=== PATIENT | female | born 2000 ===

== ENCOUNTER 2020-01-04 02:15 | Inpatient (IN) | payer BC, OTHER ==
[2020-01-04] MEDS ORDERED: LABETALOL 100 MG TAB PO STA (03:00)
[2020-01-04] MEDS ORDERED: METHYLERGONOVINE 0.2 MG/ML 1 ML AMP IM PRN (03:00)
[2020-01-04] MEDS ORDERED: OXYTOCIN 30 UNITS/500 ML NS 30 UNIT in SALINE 1 500ML.BAG IV SCH (03:00)
[2020-01-04] MEDS ORDERED: LIDOCAINE 0.5% (PF) 5 MG/ML (50 ML SDV) SQ PRN (03:00)
[2020-01-04] MEDS ORDERED: CARBOPROST TROMETHAMINE 250 MCG/ML 1 ML AMP IM PRN (03:00)
[2020-01-04] MEDS ORDERED: OXYTOCIN 10 UNIT/ML 1 ML VIAL IM PRN (03:00)
[2020-01-04] MEDS ORDERED: TERBUTALINE 1 MG/ML VIAL SQ PRN (03:00)
[2020-01-04 03:20] LABS: Amorphous Sediment,Urine Rare /hpf; Appearance,Urine Cloudy (Clear); Bacteria,Urine Many /hpf; Bilirubin,Urine Negative (Negative); Blood,Urine Negative (Negative); Color,Urine Yellow; Glucose,Urine (UA) Negative (Negative); Ketones,Urine Negative (Negative); Leukocyte Esterase,Urine Negative (Negative); Mucus,Urine Rare /hpf; Nitrite,Urine Negative (Negative); PH, Urine 6.5 (5.0-8.0); Protein,Urine 1+ (Negative); Specific Gravity,Urine 1.014 (1.001-1.035); Squamous Epithelial Cell,Urine 23 /hpf (0-4); Urobilinogen,Urine <2.0 mg/dL (<2.0); WBC,Urine 3 /hpf (0-5)
[2020-01-04] MEDS: LACTATED RINGERS 1,000 ML IV SCH ×2 (03:28→10:37)
[2020-01-04 03:31] LABS: Creatinine,Urine Random 75.6 mg/dL; Protein/Creatinine Ratio,Urine 0.636
[2020-01-04 04:00] LABS: Basophils % (A) 0 %; Eosinophils # (A) 0.2 k/uL (0-0.7); Eosinophils % (A) 1 %; HCT 39.1 % (34.0-46.0); HGB 12.7 gm/dL (11.4-16.0); Lymphocytes % (A) 20 %; MCH 28.5 pg (25.0-35.0); MCHC 32.6 g/dL (31.0-37.0); MCV 87.4 fL (80.0-100.0); Mean Platelet Volume 8.8; Monocytes # (A) 0.6 k/uL (0-1.0); Monocytes % (A) 4 %; Neutrophils # (A) 10.8 k/uL (1.3-7.7); Neutrophils % (A) 73 %; Platelet Count 317 k/uL (150-450); RBC 4.47 m/uL (3.80-5.40); RDW 13.7 % (11.5-15.5); WBC 14.8 k/uL (4.0-11.0)
[2020-01-04 04:01] LABS: ALT 9 U/L (4-34); AST 26 U/L (14-36); African American GFR (CKD) >90 (>60 ml/min/1.73 sqM); Blood Urea Nitrogen 11 mg/dL (7-17); LDH 535 U/L (313-618); Non-African American GFR(CKD) >90 (>60 ml/min/1.73 sqM); Uric Acid 5.1 mg/dL (3.7-7.4)
[2020-01-04] MEDS ORDERED: AMPICILLIN 2,000 MG in SODIUM CHLORIDE 0.9% 100 ML IVPB STA (04:23)
[2020-01-04] MEDS ORDERED: AMPICILLIN 1,000 MG in SODIUM CHLORIDE 0.9% 50 ML IVPB SCH (08:23)
--- NOTE | 2020-01-04 09:20 | P.HPOB ---
History of Present Illness H&P Date: 01/04/20 Chief Complaint: IUP at 38 and 3/sevenths weeks, preeclampsia with severe fe atures This is a 19-year-old 4 para 0030 at 38-3/7 weeks that presents to labor and delivery with complaints of increased swelling headache and contractions. Patient was noted to be 2-3 cm on dilation. Blood pressures were noted to be elevated 170s over 100s. Patient noted headache which resolved after IV fluids. Patient noted good movement. She denied visual changes or right upper quadrant pain. Patient has been receiving routine care with myself since the first trimester. She did have a labs of about 3 weeks from 34-37 weeks that subsequently returned for care. On bloodwork patient has a blood type of O+, rubella non-immune, hepatitis B surface antigen negative, RPR nonreactive, HIV negative, group beta strep negative. Review of Systems Constitutional: Denies chills, Denies fever Ears, nose, mouth and throat: Reports headache Cardiovascular: Reports leg edema Respiratory: Denies cough, Denies dyspnea Gastrointestinal: Reports heartburn, Denies constipation, Denies diarrhea, Denies nausea, Denies vomiting Genitourinary: Reports Past Medical History Past Medical History: Asthma History of Any Multi-Drug Resistant Organisms: None Reported Additional Past Surgical History / Comment(s): Neck surgery for an infection when young Past Anesthesia/Blood Transfusion Reactions: No Reported Reaction Past Psychological History: Anxiety Smoking Status: Former smoker Past Alcohol Use History: None Reported Past Drug Use History: None Reported - Past Family History Father Additional Family Medical History / Comment(s): Unknown "heart issue" Medications and Allergies Home Medications Medication Instructions Recorded Confirmed Type No Known Home Medications 01/04/20 01/04/20 History Allergies Allergy/AdvReac Type Severity Reaction Status Date / Time No Known Allergies Allergy Verified 01/04/20 02:28 Exam Osteopathic Statement: *. No significant issues noted on an osteopathic structural exam other than those noted in the History and Physical/Consult. 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 Breathing is noted to be nonlabored, heart has regular rate and rhythm, abdomen is gravid and appropriate for gestational age, on cervical exam she is 3/90/-2 amniotomy is performed and clear fluid is obtained. heart tones returned be category 1 and she is jose irregularly. Results Result Diagrams: 01/04/20 03:20 01/04/20 03:20 Abnormal Lab Results - Last 24 Hours (Table) 01/04/20 01/04/20 01/04/20 Range/Units 02:30 02:30 03:20 WBC 14.8 H (4.0-11.0) k/uL Neutrophils # 10.8 H (1.3-7.7) k/uL Urine Appearance Cloudy H (Clear) Urine Protein 1+ H (Negative) Ur Squamous Epith Cells 23 H (0-4) /hpf Amorphous Sediment Rare H (None) /hpf Urine Bacteria Many H (None) /hpf Urine Mucus Rare H (None) /hpf U Random Total Protein 48 H (<12) mg/dL Assessment and Plan (1) Term Current Visit: Yes Status: Acute Code(s): Z34.90 - ENCNTR FOR SUPRVSN OF NORMAL , UNSP, UNSP TRIMESTER SNOMED Code(s): 35059687 (2) Preeclampsia Current Visit: Yes Status: Acute Code(s): O14.90 - UNSPECIFIED PRE-ECLAMPSIA, UNSPECIFIED TRIMESTER SNOMED Code(s): 671994021 (3) Rubella non-immune status, antepartum Current Visit: Yes Status: Acute Code(s): O99.89 - OTH DISEASES AND CONDITIONS COMPL PREG/CHLDBRTH; Z28.3 - UNDERIMMUNIZATION STATUS SNOMED Code(s): 363553809 Plan: Patient was admitted for induction of labor secondary to preeclampsia with severe features given blood pressures of 170s over 100s. Patient looks well this a.m. Continue Pitocin induction of labor per hospital protocol. Options for analgesia are discussed with patient including Stadol and epidural she will decide if she wants either. Anticipate spontaneous vaginal delivery later today.
[2020-01-04] MEDS ORDERED: BUTORPHANOL 1 MG/ML 1 ML VIAL IV PRN (10:23)
[2020-01-04] MEDS ORDERED: ROPIVACAINE 100 MG, fentaNYL (PF) 200 MCG in SODIUM CHLORIDE 0.9% 76 ML EPIDURAL ONE (12:17)
[2020-01-04 14:34] VITALS: RESP 16
[2020-01-04] MEDS ORDERED: diphenhydrAMINE 50 MG CAP PO PRN (14:40)
[2020-01-04] MEDS ORDERED: diphenhydrAMINE 25 MG CAP PO PRN (14:40)
[2020-01-04] MEDS ORDERED: IBUPROFEN 600 MG TAB PO PRN (14:40)
[2020-01-04] MEDS ORDERED: WITCH HAZEL 1 EACH MED..PAD TOPICAL PRN (14:40)
[2020-01-04] MEDS ORDERED: SIMETHICONE 80 MG CHEWABLE PO PRN (14:40)
[2020-01-04] MEDS ORDERED: HYDROCORTISONE 2.5% RECTAL CREAM 30 GM TUBE RECTAL PRN (14:40)
[2020-01-04] MEDS ORDERED: ACETAMINOPHEN TAB 325 MG TAB PO PRN (14:40)
[2020-01-04] MEDS ORDERED: ZOLPIDEM 5 MG TAB PO PRN (14:40)
[2020-01-04] MEDS ORDERED: LANOLIN CREAM 5 GM TUBE TOPICAL PRN (14:40)
[2020-01-04] MEDS ORDERED: MEASLES-MUMPS-RUBELLA VACC/PF 12,500 UNIT/0.5 ML VIAL SQ ONE (14:40)
[2020-01-04] MEDS ORDERED: diphenhydrAMINE 50 MG/ML 1 ML VIAL IVP PRN ×2 (14:40)
[2020-01-04] MEDS ORDERED: BENZOCAINE/MENTHOL SPRAY 1 GM/SPRAY AEROSOL TOPICAL PRN (14:40)
[2020-01-04] MEDS ORDERED: OXYTOCIN 20 UNITS/1000 ML NS 1,000 ML IV SCH (14:45)
--- NOTE | 2020-01-04 15:06 | P.PROBDLV ---
Vaginal Delivery Note - . Vaginal Delivery Note: This is a pleasant 19-year-old 4 para 0030 at 38 3/7 weeks that presented to the hospital overnight with complaints of contractions and headache. Patient was noted to have elevated blood pressures of 170s over 100s upon admission. Patient was subsequently admitted to the hospital, and Pitocin induction of labor was begun for preeclampsia with severe features. Headache did resolve with IV fluids. Patient did have preeclampsia labs done which were normal, urine protein creatinine ratio was noted to be elevated at 0.6. Patient was started on Pitocin induction of labor per hospital protocol. Patient was noted be jose in a regular pattern and underwent amniotomy, clear fluid was obtained. Patient became uncomfortable requesting epidural placement. Epidural was placed without difficulty by the anesthesia department. Patient progressed to complete with urge to push was felt she began pushing and had a normal spontaneous vaginal delivery of a viable male weight of 5 lbs. 9 oz. with Apgars of 9 and 9 at one and 5 minutes respectively, time of 1616. Infant did have a loose nuchal/body cord which was delivered through. After two-minute delay the umbilical cords doubly clamped and cut and the infant was handed off to the maternal abdomen. The placenta was then delivered spontaneously intact with three-vessel cord being noted. On inspection the patient's vaginal vault a left hymenal laceration was noted this was infused wit h lidocaine and repaired with a [id number] suture of 0 Vicryl. Hemostasis was appreciated. The uterus was noted to be firm and below the umbilicus Estimated blood loss 300 mL. Patient and infant tolerated delivery well and are resting comfortably All counts were noted to be correct 2.
[2020-01-04] MEDS: SENNOSIDES-DOCUSATE SODIUM 1 EACH TAB PO SCH (20:54)
[2020-01-05 06:19] LABS: Basophils % (A) 0 %; Eosinophils # (A) 0.2 k/uL (0-0.7); Eosinophils % (A) 1 %; HCT 31.5 % (34.0-46.0); HGB 10.4 gm/dL (11.4-16.0); Lymphocytes # (A) 3.5 k/uL (1.0-4.8); Lymphocytes % (A) 23 %; MCH 29.1 pg (25.0-35.0); MCHC 33.1 g/dL (31.0-37.0); Monocytes # (A) 0.5 k/uL (0-1.0); Monocytes % (A) 4 %; Neutrophils # (A) 10.8 k/uL (1.3-7.7); Neutrophils % (A) 71 %; Platelet Count 331 k/uL (150-450); RBC 3.58 m/uL (3.80-5.40); WBC 15.1 k/uL (4.0-11.0)
[2020-01-05] MEDS: SENNOSIDES-DOCUSATE SODIUM 1 EACH TAB PO SCH (08:17)
--- NOTE | 2020-01-05 08:23 | P.DS ---
Providers Date of admission: 01/04/20 03:05 Expected date of discharge: 01/05/20 Attending physician: Alysha Verde Primary care physician: Stated None - Discharge Diagnosis(es) (1) Term Current Visit: Yes Status: Acute (2) Preeclampsia Current Visit: Yes Status: Acute (3) Rubella non-immune status, antepartum Current Visit: Yes Status: Acute (4) Status post vaginal delivery Current Visit: Yes Status: Acute Hospital Course: This is a pleasant 19-year-old 4 para 0030 at 38-3/7 weeks that presented to the hospital with complaints of contractions and headache. Patient was noted to have elevated blood pressures of 170s over 100s upon admission. Patient was subsequently admitted with pre-[place] with severe features. Patient 's blood pressures normalized to 140s over 90s without IV treatment. Patient was begun on Pitocin, for induction of labor secondary very to pre-[place]. Patient progressed through labor eventually undergoing amniotomy which yielded clear fluid. Patient became uncomfortable requesting epidural placement. Epidural was placed without difficulty by the anesthesia department. Patient progressed through labor becoming complete. Patient began pushing and had a normal spontaneous vaginal delivery of a viable male infant at 1616, weight of 5 lbs. 9 oz. with Apgars of 9 and 9 at one and 5 minutes respectively. Patient does have a loose nuchal cord which was delivered through. Patient sustained a first-degree hymenal laceration which was repaired with a [id number] suture. Patient's course is essentially uneventful. On this day #1 she is ambulating and voiding without difficulty. She states her lochia is moderate. She is breast-feeding with some difficulty. She would like discharge home at 24 hours. Patient Condition at Discharge: Good Plan - Discharge Summary New Discharge Prescriptions: No Action No Known Home Medications Discharge Medication List No Known Home Medications 01/04/20 [History] Follow up Appointment(s)/Referral(s): Alysha Verde DO [Doctor of Osteopathic Medicine] - 1 Week Patient Instructions/Handouts: Vaginal Delivery (DC), Vaginal Delivery (GEN) Discharge Disposition: HOME SELF-CARE
[2020-01-05 22:14] VITALS: BP 128/73; PULSE 79; TEMP 98.7
== END 2020-01-05 22:45 | disposition home or self-care (01) | DRG 807 ==
LOC: FBPOP 02:15 → 4FBP 03:05
PROVIDERS: ADMIT Obstetrics & Gynecology Obstetrics; ATTEND Obstetrics & Gynecology Obstetrics
PROC: 10E0XZZ Delivery of Products of Conception, External Approach (ICD-10-PCS; principal; 2020-01-04)
PROC: 10907ZC Drainage of Amniotic Fluid, Therapeutic from Products of Conception, Via Natural or Artificial Opening (ICD-10-PCS; principal; 2020-01-04)
PROC: 0HQ9XZZ Repair Perineum Skin, External Approach (ICD-10-PCS; principal; 2020-01-04)
PROC: 3E0R3BZ Introduction of Anesthetic Agent into Spinal Canal, Percutaneous Approach (ICD-10-PCS; principal; 2020-01-04)
PROC: 00HU33Z Insertion of Infusion Device into Spinal Canal, Percutaneous Approach (ICD-10-PCS; principal; 2020-01-04)
DX: O14.14 Severe pre-eclampsia complicating childbirth (principal); Z37.0 Single live birth; F41.9 Anxiety disorder, unspecified; J45.909 Unspecified asthma, uncomplicated; O69.81X0 Labor and delivery complicated by cord around neck, without compression, not applicable or unspecified; O70.0 First degree perineal laceration during delivery; O99.52 Diseases of the respiratory system complicating childbirth; O99.344 Other mental disorders complicating childbirth; Z28.3 Underimmunization status; Z3A.38 38 weeks gestation of pregnancy; Z87.891 Personal history of nicotine dependence
CPT/HCPCS: 59025; 81001; 82565; 82570; 83615; 84112; 84156; 84450; 84460; 84520; 84550; 85025; 86850; 86900; 86901; 90707; 99215